=== PATIENT | male | born 1960 | race Hispanic/Latino ===

== ENCOUNTER 2019-12-23 | Emergency (ER) | payer SELFPAY ==
[2019-12-23 11:26] LABS: HEMATOCRIT 42.1 % (39.0-50.0); HEMOGLOBIN 14.7 g/dl (14.0-18.0); IMMATURE GRANULOCYTES 0.5 % (0.0-5.0); MEAN CELL VOLUME 92.1 fL CALC (80.0-100.0); MEAN CORPUSCULAR HGB 32.2 pG CALC (26.0-32.0); MEAN CORPUSCULAR HGB CONC 34.9 g/L CALC (32.0-36.0); NEUT# 3.59 thou/uL (1.82-7.42); RED BLOOD COUNT 4.57 mill/uL (4.70-6.10)
[2019-12-23 12:11] LABS: ALBUMIN 4.5 g/dL (3.2-5.0); ALKALINE PHOSPHATASE 96 u/l (38-126); ANION GAP 13 (6-22 (CALC)); BILIRUBIN, TOTAL 0.5 mg/dL (0.0-1.4); BUN 25 mg/dL (9-20); BUN/CREATININE RATIO 36 (12-20 (CALC)); CARBON DIOXIDE 22 mmol/l (22-30); CHLORIDE 104 mmol/l (95-108); CREATININE 0.7 mg/dL (0.7-1.3); ETHYL ALCOHOL 0 mg/dl (0-30); GFR > 60 ML/MIN (>=60 (CALC)); GFR FOR AFR.AMER. > 60 ML/MIN (>=60 (CALC)); LIPASE 83 u/l (23-300); POTASSIUM 3.9 mmol/l (3.5-5.1); SGOT/AST 41 u/l (17-59); SODIUM 135 mmol/l (137-146); TOTAL PROTEIN 7.1 g/dL (6.3-8.2)
[2019-12-23 13:12] LABS: URINE BILIRUBIN - DIPSTICK NEGATIVE (NEGATIVE); URINE BLOOD DIPSTICK NEGATIVE (NEGATIVE); URINE COLOR YELLOW; URINE GLUCOSE - DIPSTICK NEGATIVE (NEGATIVE); URINE KETONE NEGATIVE (NEGATIVE); URINE LEUK ESTERASE NEGATIVE (NEGATIVE); URINE NITRITE - DIPSTICK NEGATIVE (Negative); URINE PROTEIN - DIPSTICK NEGATIVE (NEG-TRACE); URINE SPECIFIC GRAVITY >=1.030; URINE UROBILINOGEN - DIPSTICK 0.2 E.U./dL (0.2)
[2019-12-23] MEDS ORDERED: IBUPROFEN600 MG PO (13:46)
[2019-12-23] MEDS ORDERED: FLEXERIL PO (13:46)
== END 2019-12-23 14:00 | disposition home or self-care (01) | DRG 552 ==
DX: S33.5XXA Sprain of ligaments of lumbar spine, initial encounter (principal); S80.01XA Contusion of right knee, initial encounter; S80.811A Abrasion, right lower leg, initial encounter; S00.93XD Contusion of unspecified part of head, subsequent encounter; R55 Syncope and collapse; W10.9XXA Fall (on) (from) unspecified stairs and steps, initial encounter